=== PATIENT | female | born 2000 | race Caucasian/White ===

== ENCOUNTER 2023-10-25 22:08 | Observation (INO) | payer OTHER, SELFPAY ==
--- NOTE | ~2023-10-25 | XR_ITS ---
EXAMINATION: XR chest 2V DATE: 10/26/2023 02:23 INDICATION: Sepsis. TECHNIQUE: Frontal and lateral views of the chest were obtained. COMPARISON: None. FINDINGS: There is no pneumonia, pleural effusion, or pneumothorax. The heart size is normal. IMPRESSION: 1. No acute cardiopulmonary disease. Reviewed, dictated and finalized at location A.
[2023-10-25 22:13] VITALS: BP 108/58; PULSE 87; RESP 20; TEMP 36.9; O2SAT 100
[2023-10-25 22:14] LABS: Glucose Point of Care 336 mg/dl (65-105)
[2023-10-25 23:26] LABS: Basophils Absolute Auto 0.1 K/mm3 (0.0-0.1); Basophils Percent Auto 0.2 % (0.2-1.2); Hematocrit 39.5 % (37.0-47.0); Immature Granulocyte Absolute 0.11 K/mm3 (0.00-0.031); Immature Granulocyte Percent A 0.5 % (0-0.5); Lymphocytes Percent Auto 4.9 % (18.3-44.2); Mean Corpuscular HGB Conc 32.9 g/dl (32-36); Mean Corpuscular Hemoglobin 28.6 pg (26-34); Mean Platelet Volume 9.4 fl (7.4-10.4); Monocytes Absolute Auto 0.8 K/mm3 (0.1-0.6); Monocytes Percent Auto 3.7 % (2.6-8.5); Neutrophils Absolute Auto 18.5 K/mm3 (1.3-6.7); Neutrophils Percent Auto 90.7 % (45.5-73.1); Platelet Count Result 270 k/mm3 (150-375); Red Blood Count 4.54 M/mm3 (4.2-5.4); Red Cell Distribution Width 12.5 % (11.5-14.5); White Blood Count 20.4 K/mm3 (4.5-10.0)
[2023-10-25 23:37] LABS: Alanine Aminotransferase 31 U/L (6-35); Albumin Level 5.2 g/dL (3.5-5.1); Alkaline Phosphatase 77 U/L (38-126); Anion Gap 27 mmol/L (4-12); Aspartate Amino Transferase 47 U/L (14-36); Bilirubin,Total 0.6 mg/dL (0.2-1.3); Blood Urea Nitrogen 27 mg/dL (7-17); Calcium 9.2 mg/dL (8.4-10.2); Carbon Dioxide 13 mmol/L (22-30); Chloride 97 mmol/L (98-107); Estimated CRCL calculation 70 ml/min; Estimated Glomerular Filt Rate > 60; Glucose 322 mg/dL (65-110); Phosphorus 4.9 mg/dL (2.5-4.5); Potassium 4.4 mmol/L (3.4-5.0); Sodium 137 mmol/L (137-145)
[2023-10-25 23:50] LABS: Add Urine Microscopic? NO; Appearance Urine Clear (Clear); Bilirubin Urine Negative (Negative); Blood Urine Negative (Negative); Color Urine Yellow (Yellow); Glucose Urine UA 3+ mg/dL (Negative); Ketones Urine 4+ mg/dL (Negative); Leukocyte Esterase Ur Negative LEU/UL (Negative); Nitrate Urine Negative (Negative); Protein Urine Negative (Negative); Specific Grav Ur 1.029 (1.001-1.035); Urobilinogen Urine 0.2 mg/dL (<2.0); pH Urine 5.5 (5.0-9.0)
[2023-10-26] VITALS (7 sets, daily range): BP systolic 90–112; BP diastolic 45–64; PULSE 85–99; RESP 14–20; TEMP 36.6–36.7; O2SAT 99–100; BMI 21.4
[2023-10-26 00:24] LABS: Beta-Hydroxybutyrate/Acetoacetate 6.31 mmol/L (0.02-0.27)
--- NOTE | 2023-10-26 02:11 | ED.RECABL ---
HPI - Recheck/Abnormal Lab/Rx General Chief Complaint: Recheck/Abnormal Lab/Rx Stated Complaint: DKA? Time Seen by Provider: 10/26/23 01:54 Source: patient Mode of arrival: ambulatory Limitations: no limitations History of Present Illness HPI narrative: Patient presents with concern for DKA. She is a Type 1 DM on an insulin pump that failed. She has been without insulin 23 hours at the time of arrival and having acute onset nausea/vomiting/abdominal cramps. her Dexcom was reading >400. Has never been in DKA before. Had previously had a pump failure but only required IV fluids. Was initially eating ice chips in the waiting room with POC glucose 336mg/dL. Sees organizational development consultant Dr Shaina Cornejo at [facility]. PCP Dr Jhony Wills. Related Data Home Medications Medication Instructions Recorded Confirmed bupropion HCl 100 mg tablet 150 mg PO Q12H 10/26/23 10/26/23 levothyroxine 50 mcg tablet 50 mcg PO DAILY 10/26/23 10/26/23 Allergies Allergy/AdvReac Type Severity Reaction Status Date / Time No Known Allergies Allergy Verified 10/25/23 22:09 [facility] Past Medical History Medical History (Updated 10/26/23 @ 08:05 by Yadiel Navas MD) Hypothyroidism Type 1 diabetes mellitus with hyperglycemia Family History Family History Other Asthma Cerebrovascular accident Depression Family history of Alzheimer's disease Family history of cardiovascular disease Family history of malignant neoplasm of breast in first degree relative Family history of seizure disorder Social History Social History Smoking status: Never smoker Alcohol intake: current Drinks per week: 1 Substance use: never Substance use type: does not use Do You Feel Safe in your Home?: Yes Lack of Transportation: No Lack of Food: Never True Current Housing: I Have Housing Concerned About Future Housing: No Difficulty Paying Gas/Electric Bills: No Difficulty Paying for Meds: No Currently Unemployed: No Education: Bachelor's Degree Difficulty w/ Childcare or Family Care: No Spiritual care concerns: No Exam Narrative: GENERAL: Well-appearing, well-nourished, and in no acute distress. HEAD: Normocephalic, atraumatic. EYES: Non injected, non icteric ENT: Nares clear, no rhinorrhea or epistaxis. NECK: Supple. CHEST: Speaking in full sentences. No respiratory distress. HEART: Regular rate and rhythm. . ABDOMEN: Soft, nondistended. EXTREMITIES: Normal range of motion. No lower extremity edema. SKIN: Warm, dry, no rash. NEURO: No focal deficits. Alert and oriented x3. PSYCH: Normal mood and affect. Course Vital Signs Vital signs: Vital Signs Temperature 98.4 F 10/25/23 22:13 Pulse Rate 87 10/25/23 22:13 Respiratory Rate 20 10/25/23 22:13 Blood Pressure 108/58 L 10/25/23 22:13 Pulse Oximetry 100 10/25/23 22:13 Oxygen Delivery Room Air 10/25/23 22:13 Temperature 97.8 F 10/26/23 08:00 Pulse Rate 97 10/26/23 14:00 Respiratory Rate 15 10/26/23 14:00 Blood Pressure 99/64 L 10/26/23 14:00 Pulse Oximetry 99 10/26/23 14:00 Oxygen Delivery Room Air 10/26/23 12:00 MDM - Recheck/Abnormal Lab/Rx MDM Narrative Medical decision making narrative: Patient presents with concern for DKA. Insulin dependent T1DM with recent pump failure and acute onset symptoms. In the ED she is afebrile with vital signs that are acceptable though slightly low; however, acceptable MAP and presume normal given body habitus. The patient presents with abdominal pain, nausea/vomiting. POC glucose 336. Urinalysis notable for ketones and glucosuria. Diagnosis of DKA based on the triad of hyperglycemia, ketosis, and anion-gap metabolic acidosis. Beta hydroxybutyrate elevated. Fluid bolus with normal saline administered. Insulin gtt 0.1U/kg/hr insulin via continuous IV infusion ordered. DKA protocol ordered. P
[2023-10-26 02:12] LABS: Alveolar/Arterial O2 Gradient 17.2 mmHg; Base Excess ABG -10.3 mEq/l (+/-2.0); Carboxyhemoglobin 0.7 % THb (0-2.0); Fractional Inspired Oxygen 21 %; HCO3 ABG 13.6 mEq/l (22.0-26.0); Methemoglobin ABG 0.1 %THb (0-1.5); Oxygen Content ABG 18.3 %vol (16.0-22.0); Oxygen Saturation ABG 97.5 % (95.0-100.0); Oxyhemoglobin 97.3 % THb (90.0-100.0); PCO2 ABG 25.4 mmHg (35.0-45.0); PO2 ABG 102.1 mmHg (80.0-100.0); PO2 FiO2 Ratio Arterial Blood 4.86 %; Reduced Hemoglobin 1.9 %THb (0-5.0); Total Hemoglobin 13.3 g/dL (12.0-18.0); pH ABG 7.347 (7.350-7.450)
[2023-10-26 02:13] LABS: Device ROOM AIR; Modified Allen's Test Pass; Site Drawn RIGHT RADIAL
[2023-10-26] MEDS: SODIUM CHLORIDE 0.9% IV 1,000 ML 999 ML IV CONT ×2 (02:32)
[2023-10-26 03:55] LABS: Glucose Point of Care 197 mg/dl (65-105)
[2023-10-26 04:07] LABS: Anion Gap 16 mmol/L (4-12); Blood Urea Nitrogen 23 mg/dL (7-17); Calcium 7.8 mg/dL (8.4-10.2); Carbon Dioxide 14 mmol/L (22-30); Chloride 105 mmol/L (98-107); Estimated CRCL calculation 78 ml/min; Estimated Glomerular Filt Rate > 60; Glucose 186 mg/dL (65-110); Sodium 135 mmol/L (137-145)
[2023-10-26] MEDS: INSULIN HUMAN REGULAR (*BKC) 100 UNITS in SODIUM CHLORIDE 0.9% IV 99 ML 5.5 UNITS IV CONT (04:16)
--- NOTE | 2023-10-26 04:38 | PC.NURSE ---
Pt omnipod paused at midnight 30. Last bolus of insulin was at midnight. This RN removed omnipod at this time.
--- NOTE | 2023-10-26 04:50 | ADMGEN ---
This patient, Delaney Shipley, was admitted to Intensive Care Unit-8. Patient/family oriented to hospital policies and general routines including ID bracelet, bed and alarms, visiting hours, pain management, procedures, bathroom and other care routines, personal items, smoking policy, room service/diet, and visiting hours. Information on how to activate the Rapid Response Team has been discussed. Patient/Family are encouraged to report perceived risks to care and to ask questions if they do not understand what they are told or what they should do.
[2023-10-26] MEDS: KCL 20 MEQ/D5/0.45% SOD CHL 1,000 ML 150 ML IV CONT (05:06)
[2023-10-26 06:12] LABS: Glucose Point of Care 165 mg/dl (65-105)
[2023-10-26 06:44] LABS: Glucose Point of Care 192 mg/dl (65-105)
[2023-10-26 06:51] LABS: Anion Gap 12 mmol/L (4-12); Blood Urea Nitrogen 20 mg/dL (7-17); Calcium 7.9 mg/dL (8.4-10.2); Carbon Dioxide 15 mmol/L (22-30); Chloride 106 mmol/L (98-107); Estimated CRCL calculation 88 ml/min; Estimated Glomerular Filt Rate > 60; Glucose 193 mg/dL (65-110); Sodium 133 mmol/L (137-145)
[2023-10-26 07:23] LABS: Glucose Point of Care 211 mg/dl (65-105)
[2023-10-26 07:26] LABS: MRSA (PCR) NOT DETECTED (NOT DETECTE)
[2023-10-26 07:55] LABS: SPREG INTERNAL CONTROL Positive; Serum Qual hCG Negative
--- NOTE | 2023-10-26 08:04 | WPDCNINT ---
Assessment and Plan Assessment and plan (1) DKA (diabetic ketoacidosis): Qualifiers: Diabetes mellitus type: type 1 Code(s): E11.10 - Type 2 diabetes mellitus with ketoacidosis without coma Status: Acute Assessment and Plan: Patient admitted with DKA secondary to malfunctioning of insulin pump. Patient was given IVF bolus and started on infusion Currently on Insulin infusion and Q1H glucose monitoring Serial labs are being performed Patient's anion gap is closed and she is clinically improved and asymptomatic now. I will transition to [place] insulin now. Requested patient to bring her insulin pump from home so she could be transitioned back to insulin pump prior to discharge. Start diabetic diet (2) Hypothyroidism: Code(s): E03.9 - Hypothyroidism, unspecified Status: Acute Assessment and Plan: Resume levothyroxine Check TSH (3) Leukocytosis: Code(s): D72.829 - Elevated white blood cell count, unspecified Status: Acute Assessment and Plan: Likely secondary to SIRS Repeat CBC pending UA and chest x-ray negative\ Not on any antibiotics Plan DVT prophylaxis -SCDs I anticipate patient will ambulate today Nutrition -diabetic diet Code Status - Full Code Transfer out of ICU today Infrastructure Design Engineer Consult Note Consult date: 10/26/23 Reason for consult: DKA HPI: Delaney Shipley is a 22 year old female who was recently started on insulin pump about a week ago presented with chief complaint of weakness nausea vomiting abdominal pain and malfunctioning of her pump. Patient started having symptoms yesterday morning with feeling weak tired nausea abdominal pain and cramps in the legs. She noticed that her insulin pump was not working well and she was not getting easily. Her blood sugars were elevated. When she removed her insulin pump she found that needle was not correctly inserted into her skin. She denies any fever chest pain. Review of system was positive for feeling shortness of breath. Denies any dysuria cough dizziness lightheadedness or loss of consciousness. No diarrhea or constipation. All other systems were reviewed and were negative. On arrival to ER patient was found to be dehydrated and in DKA with anion gap of 27 and blood glucose of 322. UA and chest x-ray were negative Patient was given IV fluid bolus and started on IV fluids and insulin infusion This morning patient states that she feels much better and her symptoms are resolved. She feels hungry and would like to eat food Review of Systems Review of Systems: All systems reviewed & are unremarkable except as noted in HPI and below (HPI) [facility], [facility] Past Medical History Medical History (Updated 10/26/23 @ 08:05 by Yadiel Navas MD) Hypothyroidism Type 1 diabetes mellitus with hyperglycemia Family History Family History Other Asthma Cerebrovascular accident Depression Family history of Alzheimer's disease Family history of cardiovascular disease Family history of malignant neoplasm of breast in first degree relative Family history of seizure disorder Social History Social History Smoking status: Never smoker Alcohol intake: current Drinks per week: 1 Substance use: never Substance use type: does not use Do You Feel Safe in your Home?: Yes Lack of Transportation: No Lack of Food: Never True Current Housing: I Have Housing Concerned About Future Housing: No Difficulty Paying Gas/Electric Bills: No Difficulty Paying for Meds: No Currently Unemployed: No Education: Bachelor's Degree Difficulty w/ Childcare or Family Care: No Spiritual care concerns: No Meds Home Medications and Allergies Home Medications Medication Instructions Recorded Confirmed Type bupropion HCl 100 mg tablet 150 mg PO Q12H 10/26/23 10/26/23 History levothyroxine 50
[2023-10-26 08:22] LABS: Hematocrit 33.2 % (37.0-47.0); Hemoglobin 10.5 g/dL (12.0-15.0); Mean Corpuscular HGB Conc 31.6 g/dl (32-36); Mean Corpuscular Hemoglobin 27.8 pg (26-34); Mean Corpuscular Volume 87.8 fl (80-100); Mean Platelet Volume 9.7 fl (7.4-10.4); Platelet Count Result 216 k/mm3 (150-375); Red Blood Count 3.78 M/mm3 (4.2-5.4); Red Cell Distribution Width 12.6 % (11.5-14.5); White Blood Count 16.1 K/mm3 (4.5-10.0)
[2023-10-26] MEDS: INSULIN ASPART (*BKC) 100 UNITS/ML SUB-Q (08:22)
[2023-10-26 08:34] LABS: Glucose Point of Care 266 mg/dl (65-105)
--- NOTE | 2023-10-26 08:34 | PC.NURSE ---
Patient refuses lantus and meal time insulin. States she is a brittle diabetic and lantus frequently causes her sugar to bottom out. Patient would like to wait until her insulin pump arrives to begin transitioning off the insulin drip. Dr. Navas notified of patient wishes and agreeable to wait for patient's insulin pump. Patient states the reason the insulin pump malfunctioned in the first place was due to the cannula being kinked but that she will ensure proper pump placement this time.
[2023-10-26 08:42] LABS: Phosphorus 2.6 mg/dL (2.5-4.5)
[2023-10-26 09:32] LABS: Glucose Point of Care 243 mg/dl (65-105)
[2023-10-26 09:41] LABS: Hemoglobin A1C 8.9 % (<5.7)
[2023-10-26 10:09] LABS: Thyroid Stimulating Hormone Reflex 0.288 uIU/mL (0.465-4.68)
[2023-10-26 10:34] LABS: Glucose Point of Care 279 mg/dl (65-105)
[2023-10-26 10:50] LABS: Anion Gap 9 mmol/L (4-12); Blood Urea Nitrogen 19 mg/dL (7-17); Calcium 7.5 mg/dL (8.4-10.2); Carbon Dioxide 18 mmol/L (22-30); Chloride 104 mmol/L (98-107); Estimated CRCL calculation 88 ml/min; Estimated Glomerular Filt Rate > 60; Glucose 262 mg/dL (65-110); Sodium 131 mmol/L (137-145)
[2023-10-26 11:19] LABS: Free T4 Free Thyroxine Reflex 1.39 ng/dL (0.78-2.19)
[2023-10-26 11:57] LABS: Glucose Point of Care 235 mg/dl (65-105)
[2023-10-26 12:15] LABS: Total Triiodothyronine (T3) 0.64 NG/ML (0.97-1.69)
[2023-10-26 12:35] LABS: Glucose Point of Care 252 mg/dl (65-105)
--- NOTE | 2023-10-26 14:02 | PM.DS ---
DS: Admitting Diagnosis Discharge Date 10/25/24 Admitting Diagnosis DKA DS: Discharge Diagnosis Discharge Diagnosis (1) Type 1 diabetes mellitus with hyperglycemia: Code(s): E10.65 - Type 1 diabetes mellitus with hyperglycemia Status: Acute (2) DKA (diabetic ketoacidosis): Qualifiers: Diabetes mellitus type: type 1 Code(s): E11.10 - Type 2 diabetes mellitus with ketoacidosis without coma Status: Acute (3) Hypothyroidism: Code(s): E03.9 - Hypothyroidism, unspecified Status: Acute (4) Glucosuria: Code(s): R81 - Glycosuria Status: Acute DS: Summary Hospital Course Hospital Course: patient with type I diabetes on insulin pump, her pump was malfunctioning and patient was not able to monitor her blood sugar and went to hyperglycemia resulting in DKA, from ER patient was admitted to ICU and started on insulin drip. patient was seen by electronic intelligence officer her blood sugars were trending down, patient was taken off the drip and placed back on her insulin pump, her blood sugars are now close to baseline, patient is clinically stable, discussed with electronic intelligence officer, will discharge home today. Time Spent with Patient Time attestation: Total time spent providing and/or coordinating discharge services: Exam Narrative: comforable NAD HEENT: clear nonicteric Chest: no obvious retraction Abd: not ditended MS: no edema Skin: no obvious rash Neuro: grossly intact. DS: Data Data Completed and Pending Labs on day of discharge: Labs from last 24 hours 10/26/23 10/26/23 10/26/23 12:33 11:53 10:33 WBC RBC Hgb Hct MCV MCH MCHC RDW Plt Count MPV Immature Gran % (Auto) Neut % (Auto) Lymph % (Auto) [place] % (Auto) Eos % (Auto) Baso % (Auto) Lymph # (Auto) [place] # (Auto) Eos # (Auto) Baso # (Auto) Abs Immat Gran (auto) Absolute Neuts (auto) Absolute Nucleated RBC Nucleated RBC % Puncture Site ABG pH ABG pCO2 ABG pO2 ABG PO2/FiO2 Ratio ABG HCO3 ABG O2 Saturation ABG O2 Content ABG Base Excess A-a Gradient Oxyhemoglobin Carboxyhemoglobin Methemoglobin Reduced Hemoglobin Total Hemoglobin O2 Delivery Device O2 Liters/Min FiO2 Sodium 131 L Potassium 4.0 Chloride 104 Carbon Dioxide 18 L Anion Gap 9 BUN 19 H Creatinine 0.70 Estim Creat Clear Calc 88 Estimated GFR > 60 Glucose 262 H POC Capillary Glucose 252 H 235 H Hemoglobin A1c Calcium 7.5 L Phosphorus Magnesium Total Bilirubin AST ALT Alkaline Phosphatase Total Protein Albumin Beta-Hydroxybutyrate/Acetoacetate TSH (Reflex) Free T4 Total T3 Serum HCG, Qual Urine Color Urine Appearance Urine pH Ur Specific [place] Urine Protein Urine Glucose (UA) Urine Ketones Ur Blood (Man) Urine Nitrate Urine Bilirubin Urine Urobilinogen Leukocyte Esterase Rfl Nasal MRSA (PCR) 10/26/23 10/26/23 10/26/23 10:32 09:30 08:21 WBC RBC Hgb Hct MCV MCH MCHC RDW Plt Count MPV Immature Gran % (Auto) Neut % (Auto) Lymph % (Auto) [place] % (Auto) Eos % (Auto) Baso % (Auto) Lymph # (Auto) [place] # (Auto) Eos # (Auto) Baso # (Auto) Abs Immat Gran (auto) Absolute Neuts (auto) Absolute Nucleated RBC Nucleated RBC % Puncture Site ABG pH ABG pCO2 ABG pO2 ABG PO2/FiO2 Ratio ABG HCO3 ABG O2 Saturation ABG O2 Content ABG Base Excess A-a Gradient Oxyhemoglobin Carboxyhemoglobin Methemoglobin Reduced Hemoglobin Total Hemoglobin O2 Delivery Device O2 Liters/Min FiO2 Sodium Potassium Chloride Carbon Dioxide Anion Gap BUN Creatinine Estim Creat Clear Calc Estimated GFR Glucose POC Capillary Gl
--- NOTE | 2023-10-26 14:03 | PM.IMHP ---
H&P: HPI History of Present Illness Date/Time: 10/26/23 14:03 Chief Complaint: DKA Narrative: EF-HPI narrative: Patient presents with concern for DKA. She is a Type 1 DM on an insulin pump that failed. She has been without insulin 23 hours at the time of arrival and having acute onset nausea/vomiting/abdominal cramps. her Dexcom was reading >400. Has never been in DKA before. Had previously had a pump failure but only required IV fluids. Was initially eating ice chips in the waiting room with POC glucose 336mg/dL. Sees lead network architect Dr Shaina Cornejo at [facility]. PCP Dr Jhony Wills. patient with type I diabetes on insulin pump, her pump was malfunctioning and patient was not able to monitor her blood sugar and went to hyperglycemia resulting in DKA, from ER patient was admitted to ICU and started on insulin drip. patient will be seen Review of Systems Review of Systems: All systems reviewed & are unremarkable except as noted in HPI and below (HPI) [facility] Past Medical History Medical History (Updated 10/26/23 @ 08:05 by Yadiel Navas MD) Hypothyroidism Type 1 diabetes mellitus with hyperglycemia Family History Family History Other Asthma Cerebrovascular accident Depression Family history of Alzheimer's disease Family history of cardiovascular disease Family history of malignant neoplasm of breast in first degree relative Family history of seizure disorder Social History Social History Smoking status: Never smoker Alcohol intake: current Drinks per week: 1 Substance use: never Substance use type: does not use Do You Feel Safe in your Home?: Yes Lack of Transportation: No Lack of Food: Never True Current Housing: I Have Housing Concerned About Future Housing: No Difficulty Paying Gas/Electric Bills: No Difficulty Paying for Meds: No Currently Unemployed: No Education: Bachelor's Degree Difficulty w/ Childcare or Family Care: No Spiritual care concerns: No Meds Home Medications and Allergies Home Medications Medication Instructions Recorded Confirmed Type bupropion HCl 100 mg tablet 150 mg PO Q12H 10/26/23 10/26/23 History levothyroxine 50 mcg tablet 50 mcg PO DAILY 10/26/23 10/26/23 History Allergies Allergy/AdvReac Type Severity Reaction Status Date / Time No Known Allergies Allergy Verified 10/25/23 22:09 Vital Signs Vital Signs - 24 hr 10/25/23 22:13 10/26/23 04:18 10/26/23 05:16 Temperature 36.9 C 36.7 C Pulse Rate 87 95 85 Respiratory Rate 20 20 19 Blood Pressure 108/58 L 107/59 L 112/61 Pulse Oximetry 100 100 100 Oxygen Delivery Room Air 10/26/23 06:00 10/26/23 07:46 10/26/23 08:00 Temperature Pulse Rate 85 94 Respiratory Rate Blood Pressure Pulse Oximetry Oxygen Delivery Room Air 10/26/23 08:00 10/26/23 10:00 10/26/23 10:00 Temperature 36.6 C Pulse Rate 94 99 99 Respiratory Rate 19 18 Blood Pressure 102/45 L 90/52 L Pulse Oximetry 99 99 Oxygen Delivery 10/26/23 12:00 Temperature Pulse Rate 99 Respiratory Rate 14 Blood Pressure 94/53 L Pulse Oximetry 100 Oxygen Delivery Exam Narrative: comforable NAD HEENT: clear nonicteric Chest: no obvious retraction Abd: not ditended MS: no edema Skin: no obvious rash Neuro: grossly intact. H&P: Results Labs Labs: Short CBC 10/25/23 10/26/23 Range/Units 23:11 06:35 WBC 20.4 H 16.1 H (4.5-10.0) K/mm3 Hgb 13.0 10.5 L (12.0-15.0) g/dL Hct 39.5 33.2 L (37.0-47.0) % Plt Count 270 216 (150-375) k/mm3 BMP 10/25/23 10/26/23 10/26/23 23:11 03:52 06:35 Sodium 137 135 L 133 L Potassium 4.4 4.0 4.0 Chloride 97 L 105 106 Carbon Dioxide 13 L 14 L 15 L BUN 27 H 23 H 20 H Creatinine 0.90 0.80 0.70 Glucose 322 H 186 H 193 H Calcium 9.2 7.8 L 7.9 L 10/26/23 10:33 Sodium 131 L Po
--- NOTE | 2023-10-28 10:12 | PCCDE ---
10/28/23 Phone message left in follow up - including [facility] direct number. [facility]
== END 2023-10-26 14:32 | disposition home or self-care (01) ==
LOC: ANHED 10-26 02:05 → ANHICU 10-26 05:29
PROVIDERS: Internal Medicine; Physician Assistant; Admitting Provider Internal Medicine; Emergency Provider Student in an Organized Health Care Education/Training Program; PCP Emergency Medicine; Visit Provider Family Medicine
DX: E10.10 Type 1 diabetes mellitus with ketoacidosis without coma (principal); D72.829 Elevated white blood cell count, unspecified; E03.9 Hypothyroidism, unspecified
CPT/HCPCS: 36415; 36600; 71046; 80048; 80053; 81003; 82010; 82375; 82805; 82948; 83036; 83050; 83735; 84100; 84439; 84443; 84480; 84703; 85025; 85027; 87641; 96361; 96366; 96375; 99285; A9270; G0378; G0379; J1815; J3480; J7030